=== PATIENT | female | born 1975 | race Caucasian/White ===

== ENCOUNTER 2016-12-09 14:41 | Emergency (ER) | payer MEDICAID ==
[~2016-12-09] VITALS: Ht 170.2 cm; Wt 58.0 kg
[~2016-12-09 14:41] MED LIST: DILA100C PO; MOME17I; TYLE3 PO
[2016-12-09 14:45] VITALS: BP 150/76; PULSE 95; RESP 17; TEMP 97.6; O2SAT 98
[2016-12-09] MEDS ORDERED: VIST25CA PO (15:05)
[2016-12-09] MEDS ORDERED: SERO400T PO (15:05)
[2016-12-09] MEDS ORDERED: DILA100C PO (15:05)
[2016-12-09] MEDS ORDERED: GABA300C5 PO (15:05)
--- NOTE | 2016-12-09 15:07 | PD ---
HPI Chief Complaint: Psychiatric Symptoms Time Seen by Provider: 15:07 Travel History International Travel<30 days: No Contact w/Intl Traveler<30days: No Traveled to known affect area: No History of Present Illness HPI 41-year-old female with history of depression, anxiety, substance abuse and seizure disorder presents voluntarily to the emergency department for evaluation of suicidal ideations. The patient states that she is here because "I need help." States that she has been abusing Xanax, Lortab and methamphetamines. States that she is also homeless. States that she tried to kill her self 3 days ago by injecting methamphetamines and taking Xanax. States that since then she has not ingested any substances in an attempt to harm herself. She has taken 1.5 mg of Xanax today and 6 [id number] Benadryl tablets 8 hours ago because she "just wanted to go to sleep." She denies any physical complaints. Denies any chest pain, shortness of breath, abdominal pain, nausea, vomiting, diarrhea, lightheadedness, dizziness. Denies any alcohol use. Denies homicidal ideations. Denies auditory or visual hallucinations. No other complaints. [facility] Past Medical History Depression: Yes Seizures: Yes ?: Not Social History Alcohol Use: Yes Tobacco Use: Yes Substance Use: No Allergies-Medications (Allergen,Severity, Reaction): Coded Allergies: Penicillin (Verified Allergy, Severe, Anaphylaxis, 12/09/16) Toradol (Verified Allergy, Severe, Anaphylaxis, 12/09/16) Zyprexa (Verified Allergy, Severe, Anaphylaxis, 12/09/16) Reported Meds & Prescriptions Reported Meds & Active Scripts Active Reported Seroquel (Quetiapine Fumarate) 400 Mg Tab 400 Mg PO HS Vistaril (Hydroxyzine Pamoate) 25 Mg Cap 25 Mg PO TID PRN Dilantin (Phenytoin Extended) 100 Mg Cap 100 Mg PO TID Gabapentin 300 Mg Cap 400 Mg PO TID Review of Systems Except as stated in HPI: all other systems reviewed are Neg Physical Exam Narrative GENERAL: Well-nourished and well-developed female patient in no acute distress who is nontoxic appearing. SKIN: Warm and dry. HEAD: Normocephalic and atraumatic. EYES: No injection, drainage, or hyphema noted. PERRLA. EOMI. ENT: No nasal drainage noted. Oropharynx is clear. NECK: Supple and the trachea is midline. CARDIOVASCULAR: Regular rate and rhythm. RESPIRATORY: Breath sounds are equal bilaterally with no accessory muscle use, wheezing, rhonchi, or crackles. GASTROINTESTINAL: Abdomen is soft, non-tender, and nondistended. MUSCULOSKELETAL: No obvious deformities, swelling, cyanosis, or ecchymosis is present throughout the upper and lower extremities. Patient has full range of motion without any signs of neurovascular compromise. NEUROLOGICAL: Awake, alert, and oriented. Normal speech and gait. Cranial nerves are grossly intact. Data Data Last Documented VS Vital Signs Date Time Temp Pulse Resp B/P Pulse Ox O2 Delivery O2 Flow Rate FiO2 12/09/16 15:06 17 12/09/16 14:45 97.6 95 150/76 98 Orders Complete Blood Count With Diff (12/09/16 15:06) Comprehensive Metabolic Panel (12/09/16 15:06) Psych Screen (12/09/16 15:06) Drug Screen, Random Urine (12/09/16 15:06) Alcohol (Ethanol) (12/09/16 15:06) Salicylates (Aspirin) (12/09/16 15:06) Tylenol (Acetaminophen) (12/09/16 15:06) Ed Urine Pregnancytest Poc (12/09/16 15:06) Labs Laboratory Tests Test 12/09/16 15:10 White Blood Count 9.2 TH/MM3 Red Blood Count 4.08 MIL/MM3 Hemoglobin 13.5 GM/DL Hematocrit 38.4 % Mean Corpuscular Volume 94.3 FL Mean Corpuscular Hemoglobin 33.1 PG Mean Corpuscular Hemoglobin 35.1 % Concent Red Cell Distribution Width 12.8 % Platelet Count 319 TH/MM3 Mean Platelet Volume 8.4 FL Neutrophils (%) (Auto) 56.1 % Lymphocytes (%) (Auto) 33.6 % Monocytes (%) (Auto) 6.8 % Eosinophils (%) (Auto) 2.5 % Basophils (%) (Auto) 1.0 % Neutrophils # (Auto) 5.1 TH/MM3 Lymphocytes # (Auto) 3.1 TH/MM3 Monocytes # (Auto) 0.6 TH/MM3 Eosinophils # (Auto) 0.2 TH/MM3 Basophils # (Auto) 0.1 TH/MM3 CBC Comment DIFF FINAL Differential Comment Sodium Level 143 MEQ/L Potassium Level 3.6 MEQ/L Chloride Level 107 MEQ/L Carbon Dioxide Level 27.9 MEQ/L Anion Gap 8 MEQ/L Blood Urea Nitrogen 7 MG/DL Creatinine 0.70 MG/DL Estimat Glomerular Filtration 92 ML/MIN Rate Random Glucose 62 MG/DL Calcium Level 8.6 MG/DL Total Bilirubin 0.1 MG/DL Aspartate Amino Transf 13 U/L (AST/SGOT) Alanine Aminotransferase 18 U/L (ALT/SGPT) Alkaline Phosphatase 68 U/L Total Protein 7.6 GM/DL Albumin 4.0 GM/DL Salicylates Level 3.5 MG/DL Urine Opiates Screen NEG Acetaminophen Level LESS THAN 2.0 MCG/ML Urine Barbiturates Screen NEG Urine Amphetamines Screen NEG Urine Benzodiazepines Screen NEG Urine Cocaine Screen NEG Urine Cannabinoids Screen NEG Ethyl Alcohol Level 36 MG/DL MDM Medical Decision Making Medical Screen Exam Complete: Yes Emergency Medical Condition: Yes Differential Diagnosis Differential: Depression versus adjustment reaction versus anxiety versus PTSD versus psychosis NOS versus mood disorder NOS versus substance induced mood disorder versus ODD versus adjustment reaction versus schizophrenia versus bipolar disorder versus schizoaffective versus electrolyte abnormality versus dementia versus malingering. Narrative Course Patient presents voluntarily for psychiatric evaluation. Physical examination and vital signs are essentially unremarkable. Patient has no medical complaints to report. Psych screen has been ordered. CBC is unremarkable. CMP is unremarkable. Interestingly urine tox is negative. Tylenol and salicylate levels are within normal limits. EtOH is 36. Patient is medically clear for psychiatric evaluation and disposition. Diagnosis Primary Impression: Depression Qualified Code: F32.9 - Depression, unspecified depression type Tari Piper Dec 09, 2016 15:07
[2016-12-09 15:58] LABS: AUTOMATED NEUTROPHIL # 5.1 TH/MM3 (1.8-7.7); BASOPHIL # 0.1 TH/MM3 (0-0.2); EOSINOPHIL # 0.2 TH/MM3 (0-0.4); EOSINOPHIL % 2.5 % (0.0-4.0); HEMATOCRIT 38.4 % (35.0-46.0); HEMO FLAGS DIFF FINAL; LYMPH % 33.6 % (9.0-44.0); LYMPHOCYTE # 3.1 TH/MM3 (1.0-4.8); MEAN CELL VOLUME 94.3 FL (80.0-100.0); MEAN CORPUSCULAR HEMOGLOBIN 33.1 PG (27.0-34.0); MEAN CORPUSCULAR HGB CONC 35.1 % (32.0-36.0); MONO % 6.8 % (0.0-8.0); NEUT % 56.1 % (16.0-70.0); PLATELET COUNT 319 TH/MM3 (150-450); RED BLOOD COUNT 4.08 MIL/MM3 (4.00-5.30); RED CELL DISTRIBUTION WIDTH 12.8 % (11.6-17.2); WHITE BLOOD COUNT 9.2 TH/MM3 (4.0-11.0)
[2016-12-09 16:00] LABS: AMPHETAMINE, URINE NEG (NEG); BARBITURATES, URINE NEG (NEG); COCAINE, URINE NEG (NEG)
[2016-12-09 16:09] LABS: ALT (GPT) 18 U/L (10-53); ANION GAP 8 MEQ/L (5-15); AST (GOT) 13 U/L (15-37); BICARBONATE 27.9 MEQ/L (21.0-32.0); BLOOD UREA NITROGEN 7 MG/DL (7-18); CHLORIDE 107 MEQ/L (98-107); GLOMERULAR FILTRATION RATE 92 ML/MIN (>89); POTASSIUM 3.6 MEQ/L (3.5-5.1); SODIUM (NA) 143 MEQ/L (136-145)
[2016-12-09 16:11] LABS: ACETAMINOPHEN LESS THAN 2.0 MCG/ML (10.0-30.0); ALKALINE PHOSPHATASE 68 U/L (45-117); TOTAL BILIRUBIN ADULT 0.1 MG/DL (0.2-1.0)
[2016-12-09 18:00] VITALS: BP 148/80; PULSE 76; RESP 17; TEMP 98; O2SAT 99
[2016-12-10 02:04] VITALS: BP 122/55; PULSE 68; RESP 19; O2SAT 96
[2016-12-10 06:00] VITALS: BP 109/60; PULSE 70; RESP 18; O2SAT 96
== END 2016-12-10 09:35 | disposition home or self-care (01) ==
LOC: NEPE 14:41 → NEPJ 12-10 09:35
DX: F32.9 Major depressive disorder, single episode, unspecified (principal); F19.20 Other psychoactive substance dependence, uncomplicated; F15.20 Other stimulant dependence, uncomplicated; F10.10 Alcohol abuse, uncomplicated; R45.851 Suicidal ideations; F41.8 Other specified anxiety disorders; Z59.0 Homelessness
CPT/HCPCS: 80053; 80307; 84703; 85025; 99285